=== PATIENT | male | born 1975 | race African-American/Black ===

== ENCOUNTER 2020-09-25 11:55 | Emergency (ER) | payer OTHER ==
[~2020-09-25] VITALS: Ht 195.6 cm; Wt 74.8 kg
[2020-09-25 12:30] LABS: URINE BILIRUBIN NEGATIVE (Negative); URINE BLOOD NEGATIVE (Negative); URINE CLARITY CLEAR; URINE COLOR YELLOW; URINE GLUCOSE-RANDOM* NEGATIVE (Negative); URINE KETONES NEGATIVE (Negative); URINE LEUKOCYTES-REFLEX NEGATIVE (Negative); URINE NITRITE-REFLEX NEGATIVE (Negative); URINE PROTEIN (DIPSTICK) NEGATIVE (Negative); URINE SPECIFIC GRAVITY 1.025 (1.005-1.035); URINE UROBILINOGEN 0.2 E.U./dl (0.2-1.0)
[2020-09-25 12:37] LABS: CALCIUM 9.7 mg/dL (8.5-10.1); CREATININE 1.2 mg/dL (0.7-1.3); POTASSIUM 3.8 mmol/L (3.5-5.1)
[2020-09-25 12:40] LABS: HEMATOCRIT 51.3 % (42.0-52.0); HEMOGLOBIN 17.3 gm/dL (14.0-18.0); MCH 30.6 pg (26.0-34.0); MCHC 33.7 g/dL (28.0-37.0); MCV 90.8 fL (80.0-100.0); RBC 5.65 mil/uL (4.50-6.00); RDW 13.7 % (10.5-14.5); WBC 6.3 thou/uL (4.0-11.0)
[2020-09-25 13:30] VITALS: BP 149/87
== END 2020-09-25 13:30 | disposition home or self-care (01) ==
LOC: ER 11:55
PROVIDERS: Emergency Medicine
DX: K62.5 Hemorrhage of anus and rectum (principal); Z91.048 Other nonmedicinal substance allergy status

== ENCOUNTER 2021-11-05 20:37 | Emergency (ER) | payer OTHER ==
[~2021-11-05] VITALS: Ht 195.6 cm; Wt 72.6 kg
[2021-11-05 20:41] VITALS: BP 123/71
[2021-11-05] MEDS ORDERED: NORCO7.5 PO (22:24)
[2021-11-05] MEDS ORDERED: ZOFRAN ODT4 MG PO (22:24)
== END 2021-11-05 23:10 | disposition home or self-care (01) ==
LOC: ER 20:37
DX: S16.1XXA Strain of muscle, fascia and tendon at neck level, initial encounter (principal); S39.012A Strain of muscle, fascia and tendon of lower back, initial encounter; Z91.09 Other allergy status, other than to drugs and biological substances; V49.9XXA Car occupant (driver) (passenger) injured in unspecified traffic accident, initial encounter; Y93.89 Activity, other specified; Y92.89 Other specified places as the place of occurrence of the external cause; Y99.8 Other external cause status